=== PATIENT | male | born 1980 | race Caucasian/White ===

== ENCOUNTER 2025-07-22 16:49 | Emergency (ER) | payer MEDICARE, OTHER ==
[~2025-07-22] VITALS: Ht 170.2 cm; Wt 104.3 kg
[~2025-07-22 16:49] MED LIST: CARB200 PO; LEVE500 PO; LISI20 PO; OXCA150 PO; VIMPAT PO; ZONI100 PO
[2025-07-22] MEDS ORDERED: PRAVASTATIN SOD20 MG PO (18:50)
[2025-07-22 20:45] VITALS: BP 156/80
== END 2025-07-22 20:59 | disposition home or self-care (01) ==
LOC: ER 16:49
DX: S82.435A Nondisplaced oblique fracture of shaft of left fibula, initial encounter for closed fracture (principal); R56.9 Unspecified convulsions; Z79.899 Other long term (current) drug therapy; W19.XXXA Unspecified fall, initial encounter
CPT/HCPCS: 73590; 73600; 99283-25